=== PATIENT | female | born 1965 | race Hispanic/Latino ===

== ENCOUNTER → 2021-03-22 16:12 | Outpatient (CLI) | payer BC, SELFPAY ==
--- NOTE | ~2021-03-22 | MM_ITS ---
EXAMINATION: MM screening juan BI w adrienne HISTORY: Screening TECHNIQUE: Craniocaudal and mediolateral oblique 3-D tomosynthesis images were obtained and synthetic 2-D images were generated. CAD analysis was submitted and interpreted. COMPARISON: No prior mammogram is available for comparison at this institution. BREAST PARENCHYMAL COMPOSITION: There are scattered areas of fibroglandular density. FINDINGS: There is no evidence of suspicious mass, calcification, or architectural distortion to sugg est malignancy in either breast. There has been no suspicious interval change. IMPRESSION: 1. No mammographic evidence of malignancy. 2. Recommend routine screening mammography in one year. BI-RADS Category 1: Negative Reviewed, dictated and finalized at location A.
== END ==
PROVIDERS: PCP Nurse Practitioner; Visit Provider Nurse Practitioner
DX: Z12.31 Encounter for screening mammogram for malignant neoplasm of breast (principal)
CPT/HCPCS: 77063; 77067

== ENCOUNTER 2021-04-07 10:02 | Emergency (ER) | payer BC, SELFPAY ==
[2021-04-07 10:19] VITALS: BP 148/89; PULSE 80; RESP 18; TEMP 36.4; O2SAT 100
[2021-04-07 10:20] VITALS: BP 148/89; PULSE 80; RESP 18; TEMP 36.4; O2SAT 100
--- NOTE | 2021-04-07 10:20 | ED.WOUNDLAC ---
HPI - Wound/Laceration General Chief Complaint: Wound/Laceration Stated Complaint: Cut Middle Finger Lt Hand Source: patient Mode of arrival: ambulatory Limitations: no limitations History of Present Illness HPI narrative: Patient is a 55-year-old female who presents with a laceration to left middle finger. She reports slicing finger approximately at 8 PM last p.m. with a kitchen knife. She denies other injuries. Dressing intact upon arrival, she reports that wound continues to ooze. She has full range of motion and denies all other complaints at this time. Patient reports that tetanus is up-to-date. She denies significant medical history. Related Data Home Medications Medication Instructions Recorded Confirmed duloxetine 60 mg capsule,delayed 60 mg PO DAILY 05/31/20 05/31/20 release clonidine HCl 04/07/21 04/07/21 Allergies Allergy/AdvReac Type Severity Reaction Status Date / Time No Known Allergies Allergy Verified 05/31/20 13:12 Review of Systems Review of Systems: CONSTITUTIONAL: Denies fever, chills, or sweats. EYES: Denies visual changes, redness, or discharge. ENT: Denies rhinorrhea, congestion, sore throat, or otalgia. CARDIOVASCULAR: Denies chest pain, palpitations, or edema. RESPIRATORY: Denies cough or dyspnea. GASTROINTESTINAL: Denies abdominal pain, nausea, vomiting, or diarrhea. GENITOURINARY: Denies dysuria or hematuria. SKIN: Laceration to left middle finger MUSCULOSKELETAL: Denies back pain, joint pain, or myalgia. NEUROLOGIC: Denies headache, numbness, dizziness, or weakness. PSYCHIATRIC: Denies anxiety or depression. [facility] Surgical History Surgical History History of partial hysterectomy Family History Family History Other Depression Diabetes mellitus Family history of Parkinson's disease Family history of arthritis Family history of rheumatoid arthritis Hypertension Social History Social History Smoking status: Former smoker Second hand tobacco smoke exposure: Yes Alcohol intake: current Comments At the time of signature, I have reviewed and agree with nursing past medical, surgical, social, and family history unless otherwise noted. Please see nursing chart for further information. There is no relevant family history pertinent to the presenting complaint. Exam Narrative: GENERAL: Well-appearing, well-nourished, and in no acute distress. HEAD: Normocephalic, atraumatic. EYES: EOMI. No redness or drainage. Conjunctiva are normal. ENT: Mucous membranes pink and moist CHEST: No respiratory distress. HEART: Regular rate and rhythm. No murmur appreciated. Normal peripheral pulses. EXTREMITIES: Normal range of motion. SKIN: 1.3 cm laceration to left middle finger, irregular NEURO: No focal deficits. Alert and oriented x3. Gait steady. PSYCH: Normal affect. No signs of depression or anxiety. Course Vital Signs Vital signs: Vital Signs Temperature 36.4 C L 04/07/21 10:19 Pulse Rate 80 04/07/21 10:19 Respiratory Rate 18 04/07/21 10:19 Blood Pressure 148/89 H 04/07/21 10:19 Pulse Oximetry 100 04/07/21 10:19 Temperature 36.4 C L 04/07/21 10:20 Pulse Rate 80 04/07/21 10:20 Respiratory Rate 18 04/07/21 10:20 Blood Pressure 148/89 H 04/07/21 10:20 Pulse Oximetry 100 04/07/21 10:20 Reviewed-patient is informed that they may have pre-hypertension or hypertension based on a blood pressure reading. I recommend the patient call the primary care provider listed on their discharge instructions or a physician of their choice this week to arrange follow-up for further evaluation of possible pre-hypertension or hypertension. Procedures Laceration Laceration 1: Date: 04/07/21 Time: 10:54 Site: hand Side (If applicable): left Size (cm): 1.3
== END 2021-04-07 11:22 | disposition home or self-care (01) ==
PROVIDERS: Emergency Provider Nurse Practitioner; PCP Nurse Practitioner
DX: S61.213A Laceration without foreign body of left middle finger without damage to nail, initial encounter (principal); W26.0XXA Contact with knife, initial encounter; Z90.711 Acquired absence of uterus with remaining cervical stump
CPT/HCPCS: 12001; 99212; G0463

== ENCOUNTER → 2023-06-07 12:44 | Outpatient (CLI) | payer BC, SELFPAY ==
--- NOTE | ~2023-06-07 | MM_ITS ---
EXAMINATION: MM screening juan BI w adrienne HISTORY: Screening TECHNIQUE: Craniocaudal and mediolateral oblique 3-D tomosynthesis images were obtained and synthetic 2-D images were generated. CAD analysis was submitted and interpreted. COMPARISON: 03/22/2021 BREAST PARENCHYMAL COMPOSITION: There are scattered areas of fibroglandular density. FINDINGS: There is no evidence of suspicious mass, calcification, or architectural distortion to sugg est malignancy in either breast. There has been no suspicious interval change. IMPRESSION: 1. No mammographic evidence of malignancy. 2. Recommend routine screening mammography in one year. BI-RADS Category 1: Negative Reviewed, dictated and finalized at location A. [employer]
== END ==
PROVIDERS: PCP Obstetrics & Gynecology; Visit Provider Nurse Practitioner
DX: Z12.31 Encounter for screening mammogram for malignant neoplasm of breast (principal)
CPT/HCPCS: 77063; 77067

== ENCOUNTER 2023-08-15 19:10 | Emergency (ER) | payer BC, SELFPAY ==
--- NOTE | ~2023-08-15 | XR_ITS ---
EXAMINATION: XR foot RT min 3V DATE: 08/15/2023 19:48 INDICATION: Distal right foot pain. Fall. TECHNIQUE: 4 views of right foot were obtained. COMPARISON: Right calcaneus radiographs 09/19/2010 FINDINGS: Bone alignment is normal. No fracture. There is mild osteoarthritis of first metatarsophala ngeal joint and third distal interphalangeal joint. IMPRESSION: 1. Mild polyarticular osteoarthritis. Reviewed, dictated and finalized at location E. BUT[facility]
--- NOTE | 2023-08-15 19:24 | ED.LOWEXIN ---
HPI - Extremity Injury (Lower) General Chief Complaint: Extremity Injury, Lower Stated Complaint: fall/ lower extremity injury Time Seen by Provider: 08/15/23 19:24 Source: patient Mode of arrival: ambulatory Limitations: no limitations History of Present Illness HPI Narrative: Patient is a 58-year-old female that presents with right foot pain after running foot into when in bed boards. Patient reports burning pain sensation to toes 2 through 5 that worsens with ambulation. Patient still able to move toes independently without pain. Has taken Tylenol and ibuprofen. Denies any numbness or tingling to foot. Related Data Home Medications Medication Instructions Recorded Confirmed duloxetine 60 mg capsule,delayed 30 mg PO DAILY 05/31/20 06/12/21 release (Cymbalta) clonidine HCl 0.1 mg tablet 0.4 - 0.6 mg PO HS 04/07/21 06/12/21 lisinopril 5 mg tablet 5 mg PO DAILY 06/12/21 06/12/21 Allergies Allergy/AdvReac Type Severity Reaction Status Date / Time No Known Allergies Allergy Verified 08/15/23 19:36 Review of Systems Review of Systems: All systems reviewed & are unremarkable except as noted in HPI and below Constitutional: Constitutional: Denies body ache(s), Denies chills, Denies fatigue, Denies fever(s), Denies headache(s), Denies malaise and Denies weakness Eyes: Eyes: Denies blurry vision, Denies irritation and Denies loss of vision ENT: Denies otalgia, Denies headache(s), Denies nasal discharge, Denies sinus pain and Denies sore throat Cardiovascular: Cardiovascular: Denies chest pain, Denies irregular heart rhythm and Denies dyspnea Respiratory: Respiratory: Denies dyspnea Gastrointestinal: Gastrointestinal: Denies abdominal pain, Denies melena, Denies hematochezia, Denies diarrhea, Denies nausea and Denies vomiting Musculoskeletal: Musculoskeletal: Denies back pain, Denies myalgias and Reports arthralgias Integumentary/Breasts: Skin/Breast: Denies pruritus and Denies rash Neurologic: Denies headache(s), Denies loss of vision and Denies weakness Psychiatric: Psychiatric: Reports no additional psychiatric complaints Endocrine: Endocrine: Denies fatigue PMFSH Surgical History Surgical History H/O eye surgery History of hip surgery History of partial hysterectomy Hx of oral surgery Tubal ligation status Family History Family History Other Depression Diabetes mellitus Family history of Parkinson's disease Family history of arthritis Family history of rheumatoid arthritis Hypertension Social History Social History Smoking status: Former smoker Second hand tobacco smoke exposure: Yes Alcohol intake: current Substance use: never Substance use type: does not use Lack of Transportation: No Lack of Food: Never True Current Housing: I Have Housing Concerned About Future Housing: No Difficulty Paying Gas/Electric Bills: No Difficulty Paying for Meds: No Currently Unemployed: No Education: Bachelor's Degree Difficulty w/ Childcare or Family Care: No Comments At time of signature, agree with nursing past medical, surgical, social and family history. There is no relevant family history pertinent to the presenting complaint. Exam Const: General: cooperative, healthy appearing, comfortable, no acute distress and well nourished Nutritional Appearance: well nourished Orientation/consciousness: patient oriented x3 Limitations: no limitations HENMT: Head: normal to inspection, normocephalic and atraumatic Ears: hearing grossly normal bilaterally and external ears normal Face/Nose/Sinus: Normal external nose present, normal facial exam and face symmetric Face and sinus: normal facial exam and face symmetric Mouth: Yes lip normal Eyes: General: appearance normal, both eyes and all related structures
[2023-08-15 19:34] VITALS: BP 157/95; PULSE 97; RESP 18; TEMP 37.1; O2SAT 100
[2023-08-15 19:36] VITALS: BP 157/95; PULSE 97; RESP 18; TEMP 37.1; O2SAT 100
== END 2023-08-15 20:03 | disposition home or self-care (01) ==
PROVIDERS: Emergency Provider Nurse Practitioner Family; PCP Nurse Practitioner
DX: M19.071 Primary osteoarthritis, right ankle and foot (principal); Z87.891 Personal history of nicotine dependence
CPT/HCPCS: 73630; 99213; G0463

== ENCOUNTER 2024-10-15 13:57 | Outpatient (CLI) | payer BC, SELFPAY ==
--- NOTE | ~2024-10-15 | MM_ITS ---
EXAMINATION: MM screening juan BI w adrienne HISTORY: Screening TECHNIQUE: Craniocaudal and mediolateral oblique 3-D tomosynthesis images were obtained and synthetic 2-D images were generated. CAD analysis was submitted and interpreted. COMPARISON: Comparison to multiple prior studies sequentially, with oldest reviewed study dated 03/22. BREAST PARENCHYMAL COMPOSITION: Not dense: There are scattered areas of fibroglandular density. FINDINGS: There is no evidence of suspicious mass, calcification, or architectural distortion to sugg est malignancy in either breast. There has been no suspicious interval change. IMPRESSION: 1. No mammographic evidence of malignancy. 2. Recommend routine screening mammography in one year. BI-RADS Category 1: Negative Reviewed, dictated and finalized at location A.
== END 2024-10-15 13:58 | disposition home or self-care (01) ==
LOC: MICIMG 13:57
PROVIDERS: PCP Nurse Practitioner; Visit Provider Nurse Practitioner Obstetrics & Gynecology
DX: Z12.31 Encounter for screening mammogram for malignant neoplasm of breast (principal)
CPT/HCPCS: 77063; 77067